=== PATIENT | female | born 1940 | race Caucasian/White ===

== ENCOUNTER 2017-01-02 05:04 | Emergency (ER) | payer MEDICAID, MEDICARE ==
[~2017-01-02] VITALS: Ht 160 cm; Wt 85.3 kg
[2017-01-02] MEDS ORDERED: METO50TA82 PO (05:32)
[2017-01-02] MEDS ORDERED: LISI40TA PO (05:32)
[2017-01-02] MEDS ORDERED: ALBUTEROL SULFATE 2.5 MG/3 ML ONE (05:42)
[2017-01-02] MEDS ORDERED: ASPIRIN 81 MG TABLET CHEW PO ONE (06:00)
[2017-01-02] MEDS ORDERED: SODIUM CHLORIDE 0.9% 1,000ML IVBOLUS ONE (06:00)
[2017-01-02] MEDS ORDERED: ALBUTEROL SULFATE 2.5 MG/3 ML NPPB SCH (06:00)
[2017-01-02] MEDS ORDERED: SODIUM CHLORIDE FLUSH 10ML SYR IVF ONE (06:00)
[2017-01-02] MEDS ORDERED: NITROGLYCERIN OINT 2%, 1GM TP ONE ×2 (06:00→06:07)
[2017-01-02] MEDS ORDERED: ASPIRIN 81 MG TABLET CHEW ONE (06:07)
[2017-01-02 06:14] LABS: BLOOD UREA NITROGEN 17 mg/dL (7-18)
[2017-01-02 06:18] LABS: IS PT STATUS REG ER OR PRE ER? YES
[2017-01-02 07:45] VITALS: BP 155/72
== END 2017-01-02 07:50 | disposition home or self-care (01) ==
LOC: ED 06:26
DX: J20.9 Acute bronchitis, unspecified (principal)
CPT/HCPCS: 36415; 71010; 80048; 82040; 83605; 83880; 84484; 85025; 93005; 94640; 96360; 99285; J7030; J7613